=== PATIENT | male | born 1955 | race American Indian/Alaskan Native ===

== ENCOUNTER 2016-02-15 16:30 | Inpatient (IN) | payer MEDICAID ==
--- NOTE | 2016-02-15 17:32 | Emergency Department Report ---
Chief Complaint: Extremity Injury, Lower Stated Complaint: LEFT FOOT INJURY Time Seen by Provider: 02/15/16 17:29 - HPI History of Present Illness: 60 y/o male complain of stepping on toothpick x 2 weeks .pt state he was seen at urgent care center .pt was given keflex and mobic .pt current have edema noted to the left foot . - ROS Review of Systems: per HPI - Exam Vital Signs: Vital Signs 02/15/16 17:22 Temperature 98.2 F Pulse Rate 72 Respiratory 20 Rate Blood Pressure 131/84 O2 Sat by Pulse 99 Oximetry Physical Exam: GENERAL: The patient is well-developed and well-nourished. Patient is in NAD. HENT: Normocephalic. Atraumatic. Patient has moist mucous membranes. Throat: No erythema, swelling or exudates. EYES: Extraocular motions are intact, PERRL NECK: Supple. No meningitic signs are noted. There is no adenopathy noted. CHEST/LUNGS: Clear to auscultation bilaterally. No wheezing, rales or rhonchi noted. There is no respiratory distress noted. HEART/CARDIOVASCULAR: Regular rate and rhythm. Normal S1 S2. No murmurs, rubs , clicks, or gallops. ABDOMEN: Abdomen is soft, nontender.. Bowel sounds normoactive. There is no abdominal distention. Negative rebound tenderness. : Deferred. SKIN: There is no rash. There is no edema. There is no diaphoresis. NEURO: The patient is A&Ox3. The patient has no focal neurologic deficits. MUSCULOSKELETAL: There is no tenderness or deformity. There is no limitation range of motion. edema noted to left foot PSYCH: Pt has appropriate mood and affect. MSE screening note: Focused history and physical exam performed. Due to findings the following was ordered: ED Disposition for MSE Condition: Stable
[2016-02-15 17:56] LABS: Basophils % (Auto) 0.6 % (0.0-1.8); Hemoglobin 13.4 gm/dl (11.8-15.2); White Blood Count 11.4 K/mm3 (4.5-11.0)
[2016-02-15 18:01] LABS: Hematocrit 40.7 % (35.5-45.6); Mean Corpuscular HGB Conc 33 % (32-34); Mean Corpuscular Hemoglobin 31 pg (28-32); Mean Corpuscular Volume 94 fl (84-94); Platelet Count 280 K/mm3 (140-440); Red Blood Count 4.32 M/mm3 (3.65-5.03); Red Cell Distribution Width 14.6 % (13.2-15.2)
[2016-02-15 18:12] LABS: Blood Urea Nitrogen 24 mg/dL (9-20); Calcium 8.8 mg/dL (8.4-10.2); Carbon Dioxide 28 mmol/L (22-30); Chloride 104.4 mmol/L (98-107); Glucose 105 mg/dL (75-100); Potassium 4.1 mmol/L (3.6-5.0); Sodium 144 mmol/L (137-145)
[2016-02-15 18:24] LABS: Anion Gap 16 mmol/L
[2016-02-16] MEDS ORDERED: SUBLIMAZE IV ONE (03:02)
[2016-02-16] MEDS ORDERED: ZOFRAN IV ONE (03:02)
[2016-02-16] MEDS ORDERED: NACL 0.9% 1000 ML 1,000 ML IV ONE (03:02)
[2016-02-16] MEDS ORDERED: VANCOMYCIN/NS 1 GM/250 ML 250 ML IV ONE (03:03)
[2016-02-16] MEDS ORDERED: ZOSYN/NS 4.5GM/100ML 100 ML IV ONE (03:03)
--- NOTE | 2016-02-16 03:09 | Emergency Department Report ---
HPI - General Chief Complaint: Puncture Wound Time Seen by Provider: 02/16/16 02:51 - HPI HPI: Room 24 The patient is a 60-year-old male presenting with a chief complaint of left foot pain. Patient states 2 weeks ago he actually stuck a toothpick into the sole of his left foot. The patient states he removed in 5 days later he noticed swelling of the left foot so he went to the emergency department ( [facility]). There is a patient with diagnoses cellulitis and started on Keflex meloxicam. The patient states he has been taking the antibiotics as prescribed but his foot is worsened with continued swelling and subjective fever. Patient denies any discharge from the foot. Patient states the pain medication has not helped. The patient states his pain is currently a 15/10 Location: Left foot Duration: 2 weeks Quality: Pain Severity: 15/10 Modifying factors: [see above] Context: [see above] Mode of transportation: [not driving] ED Past Medical Hx - Past Medical History Previous Medical History?: Yes Hx Hypertension: Yes - Surgical History Past Surgical History?: No - Family History Family history: no significant - Social History Smoking Status: Current Every Day Smoker (1/7 pack per day) Substance Use Type: Alcohol (occasional) ED Review of Systems ROS: Stated complaint: LEFT FOOT INJURY Other details as noted in HPI Comment: All other systems reviewed and negative Constitutional: fever (subjective) Eyes: denies: eye pain, eye discharge, vision change ENT: denies: ear pain, throat pain Respiratory: denies: cough, shortness of breath, wheezing Cardiovascular: denies: chest pain, palpitations Endocrine: no symptoms reported Gastrointestinal: denies: abdominal pain, nausea, diarrhea Genitourinary: denies: urgency, dysuria Musculoskeletal: arthralgia, myalgia Skin: rash, change in color Neurological: denies: headache, weakness, paresthesias Psychiatric: denies: anxiety, depression Hematological/Lymphatic: denies: easy bleeding, easy bruising Physical Exam - Physical Exam Vital Signs: Vital Signs 02/15/16 02/16/16 17:22 01:15 Temperature 98.2 F 98.1 F Pulse Rate 72 74 Respiratory 20 16 Rate Blood Pressure 131/84 Blood Pressure 162/106 [Left] O2 Sat by Pulse 99 95 Oximetry Physical Exam: GENERAL: The patient is well-developed well-nourished male lying on stretcher not appearing to be in acute distress. [] HEENT: Normocephalic. Atraumatic. Extraocular motions are intact. Patient has moist mucous membranes. NECK: Supple. Jugular midline CHEST/LUNGS: Clear to auscultation. There is no respiratory distress noted. HEART/CARDIOVASCULAR: Regular. There is no tachycardia. There is no gallop rub or murmur. ABDOMEN: Abdomen is soft, nontender. Patient has normal bowel sounds. There is no abdominal distention. SKIN: There is moderate edema, increased warmth and erythema of the left foot. No discharge expressed from the site of the puncture wound on the left sole. There is no diaphoresis. NEURO: The patient is awake, alert, and oriented. The patient is cooperative. The patient has normal speech MUSCULOSKELETAL: There is no evidence of acute injury. ED Course Vital Signs 02/15/16 02/16/16 17:22 01:15 Temperature 98.2 F 98.1 F Pulse Rate 72 74 Respiratory 20 16 Rate Blood Pressure 131/84 Blood Pressure 162/106 [Left] O2 Sat by Pulse 99 95 Oximetry ED Medical Decision Making - Lab Data Result diagrams: 02/15/16 17:42 02/15/16 17:42 Laboratory Tests 02/15/16 02/15/16 17:42 17:42 WBC 11.4 H RBC 4.32 Hgb 13.4 Hct 40.7 MCV 94 MCH 31 MCHC 33 RDW 14.6 Plt Count 280 Lymph % (Auto) 17.7 [place] % (Auto) 10.3 H Eos % (Auto) 2.0 Baso % (Auto) 0.6 Lymph # 2.0 [place] # 1.2 H Eos # 0.2 Baso # 0.1 Seg Neutrophils % 69.4 Seg Neutrophils # 7.9 H Sodium 144 Potassium 4.1 Chloride 104.4 Carbon Dioxide 28 Anion Gap 16 BUN 24 H Creatinine 1.2 Estimated GFR > 60 BUN/Creatinine Ratio 20.00 Glucose 105 H Calcium 8.8 - Radiology Data Radiology results: image reviewed (left foot x-ray) interpreted by me: Left foot x-ray-no foreign body seen. No fractures - Differential Diagnosis cellulitis failure of outpatient treatment, foot abscess. Osteomyelitis Critical care attestation.: If time is entered above; I have spent that time in minutes in the direct care of this critically ill patient, excluding procedure time. ED Disposition Clinical Impression: Infection of left foot, Cellulitis of left foot, Left foot pain, Failure of outpatient treatment Disposition: OP ADMITTED IP TO THIS HOSP Is pt being admited?: Yes Does the pt Need Aspirin: Yes Condition: Fair Time of Disposition: 03:15 (hospitalist paged)
[2016-02-16] MEDS ORDERED: MORPHINE IV PRN (04:38)
--- NOTE | 2016-02-16 04:47 | History and Physical Report ---
[id number] problems comes emergency room for evaluation of worsening swelling and tenderness of his left foot. Patient stated that 2 weeks ago he stepped on a toothpick, he noticed swelling and redness of the foot. He went to urgent care who gave him antibiotic, probably Keflex which has not helped his symptoms, patient has worsening swelling, redness and pain Patient denies chest pain, palpitation, shortness of breath, cough, abdominal pain, hematochezia, dysuria, frequency, focal weakness, dysarthria, fever chills , polydipsia polyuria, hot or cold intolerance, easy bruisability, or rash or bleeding from mucosal membrane, rhinorrhea, epistaxis, earache, tinnitus, blurry vision, eye discharge, anxiety, depression. Other review of systems negative PAST SURGICAL HISTORY: None SOCIAL HISTORY: Smoke 1 pack a week, no alcohol or drugs FAMILY HISTORY: Hypertension Medications and Allergies Allergies Allergy/AdvReac Type Severity Reaction Status Date / Time bee venom (honey bee) Allergy Anaphylaxis Verified 02/16/16 00:45 Home Medications Medication Instructions Recorded Confirmed Last Taken Type Naproxen [Naproxen TAB] 250 mg PO Q8H 02/16/16 02/16/16 Unknown History Active Meds: Active Medications Sodium Chloride (Nacl 0.9% 1000 Ml) 1,000 mls @ 125 mls/hr IV ONCE ONE Stop: 02/16/16 11:01 Last Admin: 02/16/16 04:09 Dose: 125 mls/hr Morphine Sulfate (Morphine) 2 mg IV Q4H PRN PRN Reason: Pain, Moderate (4-6) Exam - Physical Exam Narrative exam: Gen. appearance: Patient lying in bed, no apparent distress HEENT: Normocephalic, atraumatic, pupils equally round and reactive to light, extraocular movement intact, and no sclericterus,. No JVD or thyromegaly or nodule,neck supple, no carotid bruit ,mucous membranes moist, no exudate or erythema Heart: S1, S2, regular rate and rhythm Lungs: Clear to auscultation bilaterally, breathing comfortable Abdomen: Positive bowel sounds, nontender, nondistended, no organomegaly Extremity: No edema, cyanosis, clubbing Skin: Left foot swelling, tender to touch, erythema, pus pocket on the dorsum of the foot, No rash, nodules, warm, dry Neuro: Oriented 3, cranial nerves II-12 intact, speech is fluent, motor and sensory intact - Constitutional Vitals: Temp Pulse Resp BP Pulse Ox 98.1 F 74 20 162/106 95 02/16/16 01:15 02/16/16 01:15 02/16/16 04:10 02/16/16 01:15 02/16/16 01:15 Results - Labs CBC & Chem 7: 02/17/16 06:26 02/17/16 06:26 Labs: Abnormal lab results 02/15/16 02/15/16 02/16/16 Range/Units 17:42 17:42 03:13 WBC 11.4 H (4.5-11.0) K/mm3 [place] % (Auto) 10.3 H (0.0-7.3) % [place] # 1.2 H (0.0-0.8) K/mm3 Seg Neutrophils # 7.9 H (1.8-7.7) K/mm3 BUN 24 H (9-20) mg/dL Glucose 105 H (75-100) mg/dL C-Reactive Protein 5.90 H (0.00-1.30) mg/dL Assessment and Plan X-ray of the foot Cellulitis and abscess of the left foot Elevated blood pressure Admits medicine Start IV vancomycin, morphine, obtain wound culture Monitor blood pressure, start DVT prophylaxis
[2016-02-16] MEDS ORDERED: MILK OF MAGNESIA PO PRN (08:33)
[2016-02-16] MEDS ORDERED: ZOFRAN IV PRN (08:33)
--- NOTE | 2016-02-16 09:26 | XRay Report ---
LEFT FOOT 2 VIEWS: 02/15/16 17:49:00 CLINICAL: Swelling. FINDINGS: No fracture or dislocation. Moderate soft tissue swelling of the forefoot and midfoot which is greater on the medial aspect of the foot. No soft tissue air or foreign body. Joint spaces are normal. No erosive changes in the bones. IMPRESSION: Nonspecific soft tissue edema and no bony abnormality.
[2016-02-16] MEDS ORDERED: LOVENOX SUB-Q SCH (10:00)
[2016-02-16] MEDS ORDERED: DULCOLAX PR PRN (10:00)
--- NOTE | 2016-02-16 10:07 | Event Note ---
Date: 02/16/16 Patient seen and examined. This is a follow-up from an admission earlier this morning. Plain films revealed no foreign body or air. Patient with some soft tissue swelling on radiograph films. Continue IV antibiotics and follow cultures and lactic acid levels. Continue the plan as outlined in H&P.
[2016-02-16] MEDS: MORPHINE IV PRN ×2 (10:52→20:32)
[2016-02-16] MEDS: LOVENOX SUB-Q SCH (10:53)
[2016-02-16] MEDS: TYLENOL PO PRN (11:07)
[2016-02-16] MEDS: VANCOMYCIN/NS 1 GM/250 ML 250 ML IV SCH (18:33)
--- NOTE | 2016-02-16 22:36 | Admit Criteria Form ---
Admission Criteria Documentation: CELLULITIS Clinical Indications for Admission to Inpatient Care (Place 'X' for any and all applicable criteria): Admission is indicated for ANY ONE of the following(1)(2)(3)(4)(5): [ ]I. Limb-threatening infection [ X]II. High-risk comorbid condition as indicated by ANY ONE of the following: [ X]a) Uncontrolled diabetes (eg, HbA1c greater than 10% (0.1)) [ ]b) Cirrhosis [ ]c) Neutropenia [ ]d) Asplenia [ ]e) Immunosuppression [ ]f) Symptomatic heart failure [ ]III. Failure of outpatient therapy as indicated by ALL of the following: [ ]a) Progression or no improvement after adequate trial (minimum of 48 hours, with longer period for stable lower extremity infection) [ ]b) Adequate antibiotic regimen as indicated by use of ANY ONE of the following: [ ]i) First-generation cephalosporin (e.g., cephalexin) [ ]ii) Antistaphylococcal penicillin (e.g., dicloxacillin) [ ]iii) Penicillin-allergic patient regimen (clindamycin, extended-spectrum fluoroquinolone, or doxycycline) [ ]iv) Resistant organism (eg, methicillin-resistant Staphylococcus aureus) regimen (6) [ ]c) Outpatient intravenous therapy regimen is not appropriate due to ANY ONE of the following. (7)(8)(9)(10): [ ]i) It was tried and was not successful (eg, progression of infection). [ ]ii) It is not available or cannot be arranged in a clinically appropriate time frame (e.g., the next day). [ ]iii) Clinical presentation (eg, acuity of infection, rapidity of progression, confirmed or suspected bacteremia) is judged to require ALL of the following: [ ]1) Immediate initiation of intravenous therapy ( eg, cannot wait for next day) [ ]2) Intensity of patient monitoring and observation (eg, vital sign measurement, checks for infection progression) that cannot be provided at other than inpatient level of care [ ]IV. Mental status changes [ ]V. Bacteremia [ ]. Hemodynamic instability [ ]VII. Suspected necrotizing soft tissue infection (e.g., gas in tissue)(11)( 12) [ ]VIII. Orbital infection (13)(14) [ ]IX. Associated surgical procedure (e.g., abscess drainage, debridement) not amenable to outpatient, emergency department, or observation care [ ]X. Cutaneous gangrene [ ]XI. High fever (temperature greater than 39.5 degrees C (103.1 degrees F) (oral)) not responsive to outpatient, emergency department, or observation care therapy [ ]XIII. Inpatient admission required rather than observation care (Also use Cellulitis: Observation Care as appropriate) because of ANY ONE of the following : [ ]a) Periorbital or perineal infection that is severe or worsening [ ]b) Severe pain requiring acute inpatient management [ ]c) IV fluid to replace significant ongoing (e.g., for over 24 hours) losses (greater than 3L/m2 per day) [ ]d) Compartment syndrome monitoring (17) [ ]e) Strict or protective (eg, laminar flow) isolation [ ]f) Urgent debridement or skin grafting [ ]g) Bone or joint debridement [ ]h) Immediate inpatient surgery [ ]i) Other condition, treatment or monitoring requiring inpatient admission Extended stay beyond goal length of stay may be needed for (1)(18): [ ]a) Necrotizing soft tissue infection or fasciitis [ ]b) Gram-negative infection [ ]c) Methicillin-resistant Staphylococcal aureus (MRSA) infection [ ]d) Peripheral venous insufficiency with cellulitis [ ]e) Extensive edema [ ]f) Sepsis or continued Hemodynamic instability [ ]g) Continued high fever or mental status change [ ]h) Bacteremia [ ]i) Active serious comorbid conditions ( eg, heart failure, renal insufficiency) The original [facility] content created by [email or web address] has been revised. The portions of the content which have been revised are identified through the use of italic text or in bold, and [facility] has neither reviewed nor approved the modified material. All other unmodified content is copyright [facility] Please see references footnoted in the original [facility] [employer] edition 2016 Admission Criteria Met: Yes
[2016-02-17] MEDS: VANCOMYCIN/NS 1 GM/250 ML 250 ML IV SCH ×2 (04:14→18:45)
[2016-02-17 06:34] LABS: Basophils % (Auto) 0.8 % (0.0-1.8); Eosinophils % (Auto) 2.1 % (0.0-4.3); Hematocrit 40.6 % (35.5-45.6); Hemoglobin 13.3 gm/dl (11.8-15.2); Mean Corpuscular HGB Conc 33 % (32-34); Mean Corpuscular Hemoglobin 31 pg (28-32); Mean Corpuscular Volume 95 fl (84-94); Platelet Count 302 K/mm3 (140-440); Red Blood Count 4.27 M/mm3 (3.65-5.03); Red Cell Distribution Width 14.5 % (13.2-15.2); White Blood Count 10.2 K/mm3 (4.5-11.0)
[2016-02-17 06:47] LABS: Anion Gap 14 mmol/L; BUN/Creatinine Ratio 7.27; Blood Urea Nitrogen 8 mg/dL (9-20); Calcium 7.9 mg/dL (8.4-10.2); Carbon Dioxide 28 mmol/L (22-30); Chloride 106.4 mmol/L (98-107); Glucose 93 mg/dL (75-100); Potassium 4.7 mmol/L (3.6-5.0); Sodium 144 mmol/L (137-145)
[2016-02-17] MEDS: LOVENOX SUB-Q SCH (11:51)
[2016-02-17] MEDS: MORPHINE IV PRN ×3 (11:55→23:16)
--- NOTE | 2016-02-17 12:13 | Progress Note ---
Assessment and Plan Assessment and plan: 1. Left lower extremity cellulitis. Improving. X-ray negative for foreign body or gas. Continue IV antibiotics. 2. Hypertension. Continue antihypertensives medications. 3. Disposition. Patient will likely discharge in the next 1-2 days. History Interval history: No new issues overnight. Hospitalist Physical - Constitutional Vitals: Temp Pulse Resp BP Pulse Ox 98.5 F 67 20 159/99 96 02/17/16 07:05 02/17/16 07:05 02/17/16 07:05 02/17/16 07:05 02/17/16 09:43 General appearance: Present: no acute distress, well-nourished - EENT Eyes: Present: PERRL, EOM intact ENT: hearing intact, clear oral mucosa, dentition normal - Neck Neck: Present: supple, normal ROM - Respiratory Respiratory effort: normal Respiratory: bilateral: CTA - Cardiovascular Rhythm: regular Heart Sounds: Present: S1 & S2. Absent: gallop, rub - Extremities Extremities: no ischemia, No edema, Full ROM Extremity abnormal: edema, erythema, other (left foot sweling, warmth and erythema) - Abdominal General gastrointestinal: soft, non-tender, non-distended, normal bowel sounds - Integumentary Integumentary: Present: clear, warm, dry - Neurologic Neurologic: CNII-XII intact, moves all extremities Results - Labs CBC & Chem 7: 02/17/16 06:26 02/17/16 06:26 Labs: Laboratory Last Values WBC 10.2 K/mm3 (4.5-11.0) 02/17/16 06:26 RBC 4.27 M/mm3 (3.65-5.03) 02/17/16 06:26 Hgb 13.3 gm/dl (11.8-15.2) 02/17/16 06:26 Hct 40.6 % (35.5-45.6) 02/17/16 06:26 MCV 95 fl (84-94) H 02/17/16 06:26 MCH 31 pg (28-32) 02/17/16 06:26 MCHC 33 % (32-34) 02/17/16 06:26 RDW 14.5 % (13.2-15.2) 02/17/16 06:26 Plt Count 302 K/mm3 (140-440) 02/17/16 06:26 Lymph % (Auto) 22.0 % (13.4-35.0) 02/17/16 06:26 [place] % (Auto) 7.0 % (0.0-7.3) 02/17/16 06:26 Eos % (Auto) 2.1 % (0.0-4.3) 02/17/16 06:26 Baso % (Auto) 0.8 % (0.0-1.8) 02/17/16 06:26 Lymph # 2.2 K/mm3 (1.2-5.4) 02/17/16 06:26 [place] # 0.7 K/mm3 (0.0-0.8) 02/17/16 06:26 Eos # 0.2 K/mm3 (0.0-0.4) 02/17/16 06:26 Baso # 0.1 K/mm3 (0.0-0.1) 02/17/16 06:26 Seg Neutrophils % 68.1 % (40.0-70.0) 02/17/16 06:26 Seg Neutrophils # 6.9 K/mm3 (1.8-7.7) 02/17/16 06:26 ESR 28 mm/Hr (0-20) 02/16/16 03:13 Sodium 144 mmol/L (137-145) 02/17/16 06:26 Potassium 4.7 mmol/L (3.6-5.0) 02/17/16 06:26 Chloride 106.4 mmol/L (98-107) 02/17/16 06:26 Carbon Dioxide 28 mmol/L (22-30) 02/17/16 06:26 Anion Gap 14 mmol/L 02/17/16 06:26 BUN 8 mg/dL (9-20) L 02/17/16 06:26 Creatinine 1.1 mg/dL (0.8-1.5) 02/17/16 06:26 Estimated GFR > 60 ml/min 02/17/16 06:26 BUN/Creatinine Ratio 7.27 % 02/17/16 06:26 Glucose 93 mg/dL (75-100) 02/17/16 06:26 Calcium 7.9 mg/dL (8.4-10.2) L 02/17/16 06:26 C-Reactive Protein 5.90 mg/dL (0.00-1.30) H 02/16/16 03:13
[2016-02-17] MEDS: NORVASC PO SCH (23:16)
[2016-02-18] MEDS: MORPHINE IV PRN ×4 (04:03→19:59)
[2016-02-18] MEDS: VANCOMYCIN/NS 1 GM/250 ML 250 ML IV SCH ×2 (04:12→15:38)
[2016-02-18] MEDS: NORVASC PO SCH (10:40)
[2016-02-18] MEDS: LOVENOX SUB-Q SCH (10:42)
--- NOTE | 2016-02-18 14:31 | Progress Note ---
Assessment and Plan Assessment and plan: 1. Left lower extremity cellulitis-with possible abscess formation-we'll get CT scan of the left foot, will consult orthopedics, continue IV vancomycin for now and monitor vancomycin levels. White count is now normal and IV morphine as needed for pain, monitor for respiratory depression while on IV morphine 2. Hypertension. Continue antihypertensives medications. 3. DVT prophylaxis-lovenox History Interval history: Follow-up for left foot cellulitis/abscess Patient seen at the bedside, pain and swelling is improving however still has pain around the left great toe with some areas that are fluctuant Hospitalist Physical - Constitutional Vitals: Temp Pulse Resp BP Pulse Ox 98.8 F 63 18 121/81 96 02/18/16 07:55 02/18/16 07:55 02/18/16 07:55 02/18/16 07:55 02/18/16 08:41 General appearance: Present: no acute distress, well-nourished - EENT Eyes: Present: PERRL, EOM intact. Absent: scleral icterus, conjunctival injection ENT: hearing intact, clear oral mucosa, no oropharyngeal erythema, no poor dentition - Neck Neck: Present: supple, normal ROM. Absent: enlarged thyroid, masses or JVD - Respiratory Respiratory effort: normal Respiratory: negative: diminished, rales, rhonchi, wheezing - Cardiovascular Rhythm: regular Heart Sounds: Present: S1 & S2. Absent: gallop - Extremities Extremities: no ischemia, pulses intact, pulses symmetrical, abnormal (swelling around the left great toe with fluctuance on the ventral aspect, tenderness) Peripheral Pulses: within normal limits - Abdominal General gastrointestinal: soft, non-tender, non-distended - Integumentary Integumentary: Present: clear - Psychiatric Psychiatric: appropriate mood/affect, intact judgment & insight, memory intact - Neurologic Neurologic: CNII-XII intact, moves all extremities Results - Labs CBC & Chem 7: 02/17/16 06:26 02/17/16 06:26 Labs: Laboratory Last Values WBC 10.2 K/mm3 (4.5-11.0) 02/17/16 06:26 RBC 4.27 M/mm3 (3.65-5.03) 02/17/16 06:26 Hgb 13.3 gm/dl (11.8-15.2) 02/17/16 06:26 Hct 40.6 % (35.5-45.6) 02/17/16 06:26 MCV 95 fl (84-94) H 02/17/16 06:26 MCH 31 pg (28-32) 02/17/16 06:26 MCHC 33 % (32-34) 02/17/16 06:26 RDW 14.5 % (13.2-15.2) 02/17/16 06:26 Plt Count 302 K/mm3 (140-440) 02/17/16 06:26 Lymph % (Auto) 22.0 % (13.4-35.0) 02/17/16 06:26 [place] % (Auto) 7.0 % (0.0-7.3) 02/17/16 06:26 Eos % (Auto) 2.1 % (0.0-4.3) 02/17/16 06:26 Baso % (Auto) 0.8 % (0.0-1.8) 02/17/16 06:26 Lymph # 2.2 K/mm3 (1.2-5.4) 02/17/16 06:26 [place] # 0.7 K/mm3 (0.0-0.8) 02/17/16 06:26 Eos # 0.2 K/mm3 (0.0-0.4) 02/17/16 06:26 Baso # 0.1 K/mm3 (0.0-0.1) 02/17/16 06:26 Seg Neutrophils % 68.1 % (40.0-70.0) 02/17/16 06:26 Seg Neutrophils # 6.9 K/mm3 (1.8-7.7) 02/17/16 06:26 ESR 28 mm/Hr (0-20) 02/16/16 03:13 Sodium 144 mmol/L (137-145) 02/17/16 06:26 Potassium 4.7 mmol/L (3.6-5.0) 02/17/16 06:26 Chloride 106.4 mmol/L (98-107) 02/17/16 06:26 Carbon Dioxide 28 mmol/L (22-30) 02/17/16 06:26 Anion Gap 14 mmol/L 02/17/16 06:26 BUN 8 mg/dL (9-20) L 02/17/16 06:26 Creatinine 1.1 mg/dL (0.8-1.5) 02/17/16 06:26 Estimated GFR > 60 ml/min 02/17/16 06:26 BUN/Creatinine Ratio 7.27 % 02/17/16 06:26 Glucose 93 mg/dL (75-100) 02/17/16 06:26 Calcium 7.9 mg/dL (8.4-10.2) L 02/17/16 06:26 C-Reactive Protein 5.90 mg/dL (0.00-1.30) H 02/16/16 03:13 Microbiology 02/16/16 04:49 Foot - Left Wound Culture - Preliminary 02/16/16 03:13 Peripheral/Venous Blood Culture - Preliminary NO GROWTH AFTER 48 HOURS 02/16/16 03:13 Peripheral/Venous Blood Culture - Preliminary NO GROWTH AFTER 48 HOURS X-ray of the left foot-nonspecific soft tissue edema and no bony abnormality
--- NOTE | 2016-02-18 17:28 | Consultation ---
History of Present Illness - HPI Consult date: 02/18/16 History of present illness: 60-year-old man stepped on a toothpick 2 weeks ago, sustained injury to the left foot. He believe that he extracted the entire to pick, however following this he developed pain and swelling and redness and is admitted because of this. During this time he was aspirated over the medial aspect the big toe, he developed a blister, fluctuating swelling. Orthopedic consultation was requested for evaluation and management of the same. Past History Past Medical History: No medical history Medications and Allergies Allergies Allergy/AdvReac Type Severity Reaction Status Date / Time bee venom (honey bee) Allergy Anaphylaxis Verified 02/16/16 00:45 Home Medications Medication Instructions Recorded Confirmed Last Taken Type Naproxen [Naproxen TAB] 250 mg PO Q8H 02/16/16 02/16/16 Unknown History Active Meds: Active Medications Acetaminophen (Tylenol) 650 mg PO Q4H PRN PRN Reason: Pain MILD(1-3)/Fever >100.5/DHILLON Last Admin: 02/16/16 11:07 Dose: 650 mg Amlodipine Besylate (Norvasc) 10 mg PO QDAY [facility] Last Admin: 02/18/16 10:40 Dose: 10 mg Bisacodyl (Dulcolax) 10 mg HI QDAY PRN PRN Reason: Constipation unrelieved by MOM Enoxaparin Sodium (Lovenox) 40 mg SUB-Q QDAY@1000 RAO Last Admin: 02/18/16 10:42 Dose: 40 mg Vancomycin HCl (Vancomycin/Ns 1 Gm/250 Ml) 250 mls @ 167 mls/hr IV Q12H RAO PRN Reason: Protocol Last Admin: 02/18/16 15:38 Dose: 167 mls/hr Magnesium Hydroxide (Milk Of Magnesia) 30 ml PO Q4H PRN PRN Reason: Constipation Morphine Sulfate (Morphine) 2 mg IV Q4H PRN PRN Reason: Pain, Moderate (4-6) Last Admin: 02/18/16 14:41 Dose: 2 mg Ondansetron HCl (Zofran) 4 mg IV Q8H PRN PRN Reason: N/V unrelieved by Reglan Review of Systems All systems: negative Physical Examination - Physical exam Eyes: PERRL ENT: Positive: clear oral mucosa Respiratory effort: normal Respiratory: bilateral: CTA Rhythm: regular Heart Sounds: Positive: S1 & S2 General gastrointestinal: Positive: soft, non-tender, non-distended, normal bowel sounds Integumentary: clear, warm, dry Neurologic: Positive: CNII-XII intact, moves all extremities, gait normal. Negative: focal deficits - Ankle & Foot left Foot appearance: other (Left foot with diffuse swelling over the medial side, over the plantar aspect of the big toe there is a puncture wound with surrounding redness, induration. A possibly 1 cm proximal to this area and over the medial side of the foot has an area of blister formation and deep fluctuation. Moderate pain with tenderness, a neuro was in deficit.) - Cervical Spine Neck pain: none Tenderness with palpation: none Full ROM: yes ROM: flexion: normal ROM: extension: normal ROM: rotation right: normal ROM: rotation left: normal ROM: lateral flexion right: normal ROM: lateral flexion left: normal - Lumbar Spine Back pain: none Tenderness with palpation: none Appearance: normal Full ROM: yes ROM: flexion: normal ROM: extension: normal ROM: rotation right: normal ROM: rotation left: normal ROM: lateral flexion right: normal ROM: lateral flexion left: normal Assessment and Plan - Patient Problems (1) Infection of left foot Current Visit: Yes Status: Chronic Plan to address problem: Need i&D/debridment, will schedule With the penetrating injury with toothpick and subsequent swelling, redness to believe that he may have retained part of the toothpick, developed subsequent infection. Recommend elevation, antibiotics, open debridement with deep cultures. May need open wound management. Procedure, competitions and outcome discussed with and all questions are answered. I will tentatively scheduled this for tomorrow.
[2016-02-19] MEDS: MORPHINE IV PRN ×5 (00:19→20:47)
[2016-02-19] MEDS: VANCOMYCIN/NS 1 GM/250 ML 250 ML IV SCH ×2 (04:00→18:19)
--- NOTE | 2016-02-19 09:54 | Anesthesia Consultation ---
Anesthesia Consult and Med Hx Date of service: 02/19/16 - Airway Anesthetic Teeth Evaluation: Poor ROM Head & Neck: Adequate Mental/Hyoid Distance: Adequate Mallampati Class: Class II Intubation Access Assessment: Probably Good - Pulmonary Exam CTA: Yes - Cardiac Exam Cardiac Exam: RRR - Pre-Operative Health Status ASA Pre-Surgery Classification: ASA2 Proposed Anesthetic Plan: General - Pre-Anesthesia Comment Pre-Anesthesia Comments: Lovenox subQ yesterday PM for DVT - Pulmonary Hx Smoking: Yes (1pack for 2 weeks x 30years) Hx Asthma: No Hx Sleep Apnea: No - Cardiovascular System Hx Hypertension: Yes (non compliance with meds) Hx Heart Attack/AMI: No Hx Pacemaker: No Hx Internal Defibrillator: No - Central Nervous System Hx Neuromuscular Disorder: Yes (Left knee swelling on naproxen) Hx Seizures: No CVA: No Hx Back Pain: Yes (lower back L1 pain) - Gastrointestinal Hx Gastroesophageal Reflux Disease: No - Endocrine Hx Renal Disease: No Hx Liver Disease: Yes (hep C, resolved after meds treatment) Hx Non-Insulin Dependent Diabetes: No - Hematic Hx Anemia: No Hx Sickle Cell Disease: No - Other Systems Hx Alcohol Use: No Hx Cancer: No - Additional Comments Anesthesia Medical History Comments: NAC
--- NOTE | 2016-02-19 09:55 | Anesthesia Day of Surgery ---
Anesthesia Day of Surgery - Day of Surgery Patient Examined: Yes Patient H&P Reviewed: Yes Patient is NPO: Yes
[2016-02-19] MEDS ORDERED: PEPCID PO NR (10:00)
[2016-02-19] MEDS ORDERED: VERSED IV NR (10:00)
--- NOTE | 2016-02-19 10:25 | Progress Note ---
Assessment and Plan Assessment and plan: 1. Left lower extremity cellulitis-with possible abscess formation-for I&D today; continue IV vancomycin for now and monitor vancomycin levels. White count is now normal and IV morphine as needed for pain, monitor for respiratory depression while on IV morphine 2. Hypertension. Continue antihypertensives medications. 3. DVT prophylaxis-lovenox History Interval history: Follow-up for left foot cellulitis/abscess Patient seen at the bedside, for I&D today Hospitalist Physical - Constitutional Vitals: Temp Pulse Resp BP Pulse Ox 98.2 F 63 20 134/93 98 02/19/16 08:41 02/19/16 08:41 02/19/16 08:41 02/19/16 08:41 02/19/16 08:41 General appearance: Present: no acute distress, well-nourished - EENT Eyes: Present: PERRL, EOM intact. Absent: scleral icterus, conjunctival injection ENT: hearing intact, clear oral mucosa, no oropharyngeal erythema, no poor dentition - Neck Neck: Present: supple, normal ROM. Absent: enlarged thyroid, masses or JVD - Respiratory Respiratory effort: normal Respiratory: negative: diminished, rales, rhonchi, wheezing - Cardiovascular Rhythm: regular Heart Sounds: Present: S1 & S2. Absent: gallop - Extremities Extremities: no ischemia, pulses intact, pulses symmetrical, No edema Peripheral Pulses: within normal limits - Abdominal General gastrointestinal: soft, non-tender, non-distended, normal bowel sounds - Integumentary Integumentary: Present: clear - Psychiatric Psychiatric: appropriate mood/affect, intact judgment & insight, cooperative - Neurologic Neurologic: CNII-XII intact, moves all extremities Results - Labs CBC & Chem 7: 02/17/16 06:26 02/17/16 06:26 Labs: Laboratory Last Values WBC 10.2 K/mm3 (4.5-11.0) 02/17/16 06:26 RBC 4.27 M/mm3 (3.65-5.03) 02/17/16 06:26 Hgb 13.3 gm/dl (11.8-15.2) 02/17/16 06:26 Hct 40.6 % (35.5-45.6) 02/17/16 06:26 MCV 95 fl (84-94) H 02/17/16 06:26 MCH 31 pg (28-32) 02/17/16 06:26 MCHC 33 % (32-34) 02/17/16 06:26 RDW 14.5 % (13.2-15.2) 02/17/16 06:26 Plt Count 302 K/mm3 (140-440) 02/17/16 06:26 Lymph % (Auto) 22.0 % (13.4-35.0) 02/17/16 06:26 [place] % (Auto) 7.0 % (0.0-7.3) 02/17/16 06:26 Eos % (Auto) 2.1 % (0.0-4.3) 02/17/16 06:26 Baso % (Auto) 0.8 % (0.0-1.8) 02/17/16 06:26 Lymph # 2.2 K/mm3 (1.2-5.4) 02/17/16 06:26 [place] # 0.7 K/mm3 (0.0-0.8) 02/17/16 06:26 Eos # 0.2 K/mm3 (0.0-0.4) 02/17/16 06:26 Baso # 0.1 K/mm3 (0.0-0.1) 02/17/16 06:26 Seg Neutrophils % 68.1 % (40.0-70.0) 02/17/16 06:26 Seg Neutrophils # 6.9 K/mm3 (1.8-7.7) 02/17/16 06:26 ESR 28 mm/Hr (0-20) 02/16/16 03:13 Sodium 144 mmol/L (137-145) 02/17/16 06:26 Potassium 4.7 mmol/L (3.6-5.0) 02/17/16 06:26 Chloride 106.4 mmol/L (98-107) 02/17/16 06:26 Carbon Dioxide 28 mmol/L (22-30) 02/17/16 06:26 Anion Gap 14 mmol/L 02/17/16 06:26 BUN 8 mg/dL (9-20) L 02/17/16 06:26 Creatinine 1.1 mg/dL (0.8-1.5) 02/17/16 06:26 Estimated GFR > 60 ml/min 02/17/16 06:26 BUN/Creatinine Ratio 7.27 % 02/17/16 06:26 Glucose 93 mg/dL (75-100) 02/17/16 06:26 Calcium 7.9 mg/dL (8.4-10.2) L 02/17/16 06:26 C-Reactive Protein 5.90 mg/dL (0.00-1.30) H 02/16/16 03:13 Microbiology 02/16/16 03:13 Peripheral/Venous Blood Culture - Preliminary NO GROWTH AFTER 72 HOURS 02/16/16 03:13 Peripheral/Venous Blood Culture - Preliminary NO GROWTH AFTER 72 HOURS 02/16/16 04:49 Foot - Left Wound Culture - Preliminary
[2016-02-19] MEDS: NORVASC PO SCH (10:44)
[2016-02-19] MEDS: LOVENOX SUB-Q SCH (13:32)
[2016-02-19] MEDS ORDERED: SUBLIMAZE ONE (14:07)
[2016-02-19] MEDS ORDERED: XYLOCAINE MPF 2% ONE (14:07)
[2016-02-19] MEDS ORDERED: DIPRIVAN 10 MG/ML IV ONE (14:07)
[2016-02-19] MEDS ORDERED: ZOFRAN ONE (14:07)
[2016-02-19] MEDS: LACTATED RINGERS 1,000 ML IV SCH (15:00)
[2016-02-19] MEDS ORDERED: ePHEDrine SULFATE ONE (15:11)
[2016-02-19] MEDS ORDERED: NACL 0.9% IR ONE ×2 (15:12)
[2016-02-19] MEDS ORDERED: NEOSPORIN GU IR ONE ×2 (15:12)
--- NOTE | 2016-02-19 15:27 | Procedure Note ---
Date of procedure: 02/19/16 Pre-op diagnosis: Abscess left foot Post-op diagnosis: same Procedure: Debridment Excisional, left foot abscess Anesthesia: GETA Surgeon: CRAIG VOGEL Estimated blood loss: none Pathology: list (tissue/ cultures) Specimen disposition: to lab Condition: stable Disposition: PACU
[2016-02-19] MEDS ORDERED: DILAUDID ONE ×2 (15:48→15:57)
[2016-02-19] MEDS ORDERED: TORADOL ONE (15:52)
[2016-02-19] MEDS ORDERED: [UNRECOGNIZED DRUG - OTHER] IV SCH (17:15)
--- NOTE | 2016-02-19 17:26 | Post Anesthesia Evaluation ---
- Post Anesthesia Evaluation Patient Participated: Yes Airway Patent: Yes Stable Respiratory Function: Yes Nausea/Vomiting: No Temp > 96.8F: Yes Pain Manageable: Yes Adequeate Hydration: Yes Anesthesia Complications: No Block Receding Appropriately: Not Applicable Patient on Ventilator: No
--- NOTE | 2016-02-19 17:38 | Operative Report ---
PREOPERATIVE DIAGNOSIS: Abscess, left foot, penetrating injury resulting from a toothpick. POSTOPERATIVE DIAGNOSIS: Abscess, left foot, penetrating injury resulting from a toothpick. OPERATIVE PROCEDURE: Debridement left foot abscess, open wound management, and deep cultures. SURGEON: Saumya Suggs MD CHILDREN'S ATTENDANT: Lizy Castillo CSA. ANESTHESIA: General. BLOOD LOSS: Minimal. DESCRIPTION OF PROCEDURE: The patient was taken to surgery suite, satisfactory analgesia obtained with general anesthetics. The left foot prepped with ChloraPrep, satisfactorily draped. No tourniquet was used. Incision was made over the medial aspect of the left foot at the first MTP region over the maximally fluctuant area. The abscess cavity was approximately 1-inch in size with purulent material and this evacuated. The abscess cavity was explored, found extending into the base of the first metatarsal head at the site of the puncture wound resulting from the toothpick. The necrotic tissue was excised by sharp and blunt dissection. Wound was irrigated with pulse irrigation system. Cultures were made prior to this for aerobic and anaerobic cultures, debrided tissue submitted for biopsy. No retained foreign bodies were identified. A small incision was made over the puncture wound site and the wound was again explored, did not find any retained foreign bodies. Therefore, after irrigation, wound was open packed. Sterile dressings were applied. The patient was transferred to recovery room in satisfactory condition and he tolerated the procedure well. JOB# [id number] JAGUAR/PASCUAL NGUYEN
[2016-02-19] MEDS ORDERED: OFIRMEV 1000 MG/100 ML IV SCH (18:00)
[2016-02-19] MEDS: TYLENOL PO PRN (18:54)
--- NOTE | 2016-02-20 03:24 | Cat Scan Report ---
FINAL REPORT PROCEDURE: CT LOWER EXTREMITY LT WO CON TECHNIQUE: Computerized axial tomography of the LEFT foot and ankle was performed without contrast. HISTORY: lt foot cellulitis' r/o abscess COMPARISON: No prior studies are available for comparison. FINDINGS: The tibia and fibula are intact. The talus and calcaneus are intact. The tarsal bones, metatarsal bones and phalanges are intact. There are destructive changes of the tibial sesamoid bone of the 1st digit indicating possible osteomyelitis. The fibular sesamoid bone is intact. There is diffuse subcutaneous edema and soft tissue swelling. There is a defect in the soft tissues of the foot along the 1st metatarsal bone. There appears to be gauze or other type of packing within the defect which extends 2.5 centimeters deep to the surface. No loculated fluid collection is identified. There is no mass. There is subcutaneous emphysema in the surrounding soft tissues. This could be due to surgical intervention or infection with gas-forming organism. IMPRESSION: Soft tissue infection of the forefoot with subcutaneous defect as described suggesting recently drained abscess adjacent to the 1st metatarsal bone. No residual abscess is seen. There are destructive changes of the tibial sesamoid bone which could be due to trauma or possibly osteomyelitis.
[2016-02-20] MEDS ORDERED: MILK OF MAGNESIA PO PRN (03:47)
[2016-02-20] MEDS ORDERED: SODIUM CHLORIDE FLUSH SYRINGE 10 ML IV NR (03:47)
[2016-02-20] MEDS ORDERED: TYLENOL PO PRN (03:47)
[2016-02-20] MEDS ORDERED: AMBIEN PO PRN (03:47)
[2016-02-20] MEDS: VANCOMYCIN/NS 1 GM/250 ML 250 ML IV SCH (05:54)
[2016-02-20 06:55] LABS: Basophils % (Auto) 0.8 % (0.0-1.8); Eosinophils % (Auto) 2.7 % (0.0-4.3); Hematocrit 43.5 % (35.5-45.6); Hemoglobin 14.3 gm/dl (11.8-15.2); Mean Corpuscular HGB Conc 33 % (32-34); Mean Corpuscular Hemoglobin 31 pg (28-32); Mean Corpuscular Volume 94 fl (84-94); Platelet Count 362 K/mm3 (140-440); Red Blood Count 4.62 M/mm3 (3.65-5.03); Red Cell Distribution Width 14.6 % (13.2-15.2); White Blood Count 10.1 K/mm3 (4.5-11.0)
[2016-02-20 06:59] LABS: BUN/Creatinine Ratio 18.33; Blood Urea Nitrogen 22 mg/dL (9-20); Calcium 8.7 mg/dL (8.4-10.2); Carbon Dioxide 28 mmol/L (22-30); Glucose 99 mg/dL (75-100); Potassium 4.3 mmol/L (3.6-5.0); Sodium 141 mmol/L (137-145)
[2016-02-20 07:00] LABS: Anion Gap 15 mmol/L
[2016-02-20] MEDS: MORPHINE IV PRN ×3 (08:43→20:40)
[2016-02-20] MEDS: LACTATED RINGERS 1,000 ML IV SCH ×2 (08:47→22:12)
[2016-02-20] MEDS: LOVENOX SUB-Q SCH (10:20)
[2016-02-20] MEDS: THERAGRAN Tab PO SCH (10:21)
[2016-02-20] MEDS: PERCOCET 5/325 PO PRN ×2 (10:21→17:45)
[2016-02-20] MEDS: NORVASC PO SCH (10:22)
--- NOTE | 2016-02-20 13:08 | Progress Note ---
Assessment and Plan Alert orientated in NAD, S/P IO D of foot abcess. Wound ok, Doing well. Subjective Date of service: 02/20/16 Objective Vital signs: Vital Signs - 12hr 02/20/16 02/20/16 05:06 08:00 Temperature 98.4 F Pulse Rate [ 90 68 Right Radial] Respiratory 20 18 Rate Blood Pressure 127/79 [Right Arm] O2 Sat by Pulse 95 Oximetry - Labs CBC & BMP: 02/20/16 06:04 02/20/16 06:04 Labs: Abnormal lab results 02/19/16 02/20/16 02/20/16 Range/Units 16:44 06:04 06:04 [place] % (Auto) 8.9 H (0.0-7.3) % [place] # 0.9 H (0.0-0.8) K/mm3 Seg Neutrophils % 72.7 H (40.0-70.0) % BUN 22 H (9-20) mg/dL Vancomycin Trough 22.2 H (5.0-20.0) ug/mL
--- NOTE | 2016-02-20 13:26 | Consultation ---
History of Present Illness - Reason for Consult Consult date: 02/20/16 Left foot abscess Requesting physician: PHI LIN - History of Present Illness Ap Arrington is a 60-year-old male with no chronic medical problems who states that he stepped on a toothpick on 02/02/16 prior to admission and developed redness, swelling and pain and was admitted to [facility] on 02/16/16. He was seen in an urgent care center and given an oral antibiotic but had progressive swelling , pain and redness and was seen in the emergency department at [facility] and admitted. He underwent drainage of a left foot abscess on 02/19/16. Currently he is having some pain which is controlled by analgesics. He did have some fever and chills prior to admission but none recently. Otherwise he has no complaints at present. As mentioned above he has no chronic medical problems and has been on no chronic medications prior to admission. Review of systems General: See HPI HEENT: no odynophagia, no dysphagia, no oral lesions, no vision changes CV: no chest pain, no palpitations Chest: no dyspnea, no cough GI: no abdominal pain, no N/V, no diarrhea : no change in urinary frequency, no dysuria, no hematuria Skin: See HPI Ext: See HPI Neuro: no headaches, no numbness/tingling, no tremors Endocrine: No history of diabetes. Psych: no anxiety, no depression Infectious diseases: No HIV risk factors, No history of STDs, No significant travel or animal contact history. Past History Past Medical History: No medical history Medications and Allergies Allergies Allergy/AdvReac Type Severity Reaction Status Date / Time bee venom (honey bee) Allergy Anaphylaxis Verified 02/16/16 00:45 Home Medications Medication Instructions Recorded Confirmed Last Taken Type Naproxen [Naproxen TAB] 250 mg PO Q8H 02/16/16 02/16/16 Unknown History Active Meds: Active Medications Acetaminophen (Tylenol) 650 mg PO Q4H PRN PRN Reason: Pain MILD(1-3)/Fever >100.5/DHILLON Last Admin: 02/19/16 18:54 Dose: 650 mg Amlodipine Besylate (Norvasc) 10 mg PO QDAY RAO Last Admin: 02/20/16 10:22 Dose: 10 mg Bisacodyl (Dulcolax) 10 mg CO QDAY PRN PRN Reason: Constipation unrelieved by MOM Enoxaparin Sodium (Lovenox) 40 mg SUB-Q QDAY@1000 RAO Last Admin: 02/20/16 10:20 Dose: 40 mg Lactated Ringer's (Lactated Ringers) 1,000 mls @ 75 mls/hr IV DIRECT RAO Last Admin: 02/20/16 08:47 Dose: 75 mls/hr Vancomycin HCl (Vancomycin/Ns 1 Gm/250 Ml) 250 mls @ 167 mls/hr IV Q24HR RAO PRN Reason: Protocol Magnesium Hydroxide (Milk Of Magnesia) 30 ml PO Q4H PRN PRN Reason: Constipation Morphine Sulfate (Morphine) 2 mg IV Q4H PRN PRN Reason: Pain, Moderate (4-6) Last Admin: 02/20/16 13:19 Dose: 2 mg Multivitamins (Theragran Tab) 1 each PO QDAY RAO Last Admin: 02/20/16 10:21 Dose: 1 each Ondansetron HCl (Zofran) 4 mg IV Q8H PRN PRN Reason: N/V unrelieved by Reglan Oxycodone/Acetaminophen (Percocet 5/325) 1 tab PO Q6H PRN PRN Reason: Pain, Moderate (4-6) Last Admin: 02/20/16 10:21 Dose: 1 tab Sodium Chloride (Sodium Chloride Flush Syringe 10 Ml) 10 ml IV PRN NR Stop: 02/21/16 03:48 Zolpidem Tartrate (Ambien) 5 mg PO QHS PRN PRN Reason: Sleep Physical Examination - Physical Exam Narrative exam: GENERAL: Well-developed, thin appearing male who is alert and in no acute distress. HEAD: Normocephalic. No lesions seen. EYES: Pupils are equal reactive to light and accommodation. There is no scleral icterus. Optic fundi are not examined. EARS: Tympanic membranes are normal. THROAT: Oropharynx is normal with no evidence of oral candidiasis or pharyngitis. Poor dentition. NECK: Supple. No enlargement of the thyroid gland. No significant cervical lymphadenopathy. No jugular venous distention at 30. LUNGS: Clear with no adventitious sounds. HEART: Regular rate. S1 and S2 are normal. There are no murmurs, gallops, clicks or rubs heard. ABDOMEN: Soft and nontender. Liver and spleen are not palpably enlarged or tender. No palpable masses. Bowel sounds are normoactive. EXTREMITIES: No peripheral lymphadenopathy, clubbing or edema. Left foot dressing is in place and not removed since he is immediately postop. No signs of ascending infection. SKIN: No rash : Not examined NEUROLOGIC: No focal findings. - Constitutional Vitals: Vital Signs Temp Pulse Resp BP Pulse Ox 98.4 F 68 18 127/79 95 02/20/16 08:00 02/20/16 08:00 02/20/16 08:00 02/20/16 08:00 02/20/16 08:00 Temperature -Last 24 Hours Temperature 98.4 F Temperature 98.1 F Temperature 97.3 F Temperature 98.1 F Temperature 97.3 F Temperature 98.6 F Results - Labs CBC & Chem 7: 02/20/16 06:04 02/20/16 06:04 Labs: Abnormal lab results Microbiology 02/19/16 15:20 Foot - Left Surgical Culture -pending. Gram stain: Few PMNs and no organisms seen 02/16/16 03:13 Peripheral/Venous Blood Culture - Preliminary NO GROWTH AFTER 4 DAYS 02/16/16 03:13 Peripheral/Venous Blood Culture - Preliminary NO GROWTH AFTER 4 DAYS 02/16/16 04:49 Foot - Left Wound Culture - usual given guerita. Gram stain: Moderate PMNs and no organisms seen. Imagin/4: CT left foot: Destructive changes of the tibial sesamoid bone of the first digit suggesting osteomyelitis. Subcutaneous emphysema surrounding the first metatarsal. Assessment and Plan Current antibiotics: Vancomycin 1 g IV q24h 02/15 --> Previous antibiotics: Zosyn 4.5 g IV q8h 02/15 ASSESSMENT: Ap Arrington is a 60-year-old male with no chronic medical problems who states that he stepped on a toothpick on 02/02/16 prior to admission and developed redness, swelling and pain and was admitted to [facility] on 02/16/16. He underwent drainage of a left foot abscess on 02/19/16. Problem list: 1. Left foot infection -After a puncture wound (stepping on a toothpick) -Rule out sesamoid osteomyelitis -Surgical cultures pending 2. Mild leukocytosis -Secondary to #1 -Resolved PLAN: 1. Will continue vancomycin pending surgical culture data 2. Will decide on long-term antibiotics based on cultures. Hopefully an oral regimen can be prescribed but if not will need IV antibiotics to treat osteomyelitis Thank you for this consultation. We will follow with you. Matthew Steve MD [facility] Office: [phone]
--- NOTE | 2016-02-20 15:23 | Progress Note ---
Assessment and Plan Assessment and plan: 1. Left lower extremity cellulitis and abscess of the left foot with osteomyelitis-post I&D today; continue IV vancomycin for now and monitor vancomycin levels. White count is now normal and IV morphine as needed for pain , monitor for respiratory depression while on IV morphine; ID consult appreciated; wound care 2. Hypertension. Continue antihypertensives medications. 3. DVT prophylaxis-lovenox History Interval history: Follow-up for left foot cellulitis/abscess Patient seen at the bedside, had I&D yesterday, no complaints today Hospitalist Physical - Constitutional Vitals: Temp Pulse Resp BP Pulse Ox 98.4 F 68 18 127/79 95 02/20/16 08:00 02/20/16 08:00 02/20/16 08:00 02/20/16 08:00 02/20/16 08:00 General appearance: Present: no acute distress, well-nourished - EENT Eyes: Present: PERRL, EOM intact. Absent: scleral icterus, conjunctival injection ENT: hearing intact, clear oral mucosa, no oropharyngeal erythema, no poor dentition - Neck Neck: Present: supple, normal ROM. Absent: enlarged thyroid, masses or JVD - Respiratory Respiratory effort: normal Respiratory: negative: diminished, rales, rhonchi, wheezing - Cardiovascular Rhythm: regular Heart Sounds: Present: S1 & S2. Absent: gallop - Extremities Extremities: no ischemia, pulses intact, pulses symmetrical, No edema Extremity abnormal: other (dressing to the left foot) Peripheral Pulses: within normal limits - Abdominal General gastrointestinal: soft, non-tender, non-distended, normal bowel sounds - Integumentary Integumentary: Present: clear - Psychiatric Psychiatric: appropriate mood/affect, intact judgment & insight, cooperative - Neurologic Neurologic: CNII-XII intact, moves all extremities Results - Labs CBC & Chem 7: 02/20/16 06:04 02/20/16 06:04 Labs: Laboratory Last Values WBC 10.1 K/mm3 (4.5-11.0) 02/20/16 06:04 RBC 4.62 M/mm3 (3.65-5.03) 02/20/16 06:04 Hgb 14.3 gm/dl (11.8-15.2) 02/20/16 06:04 Hct 43.5 % (35.5-45.6) 02/20/16 06:04 MCV 94 fl (84-94) 02/20/16 06:04 MCH 31 pg (28-32) 02/20/16 06:04 MCHC 33 % (32-34) 02/20/16 06:04 RDW 14.6 % (13.2-15.2) 02/20/16 06:04 Plt Count 362 K/mm3 (140-440) 02/20/16 06:04 Lymph % (Auto) 14.9 % (13.4-35.0) 02/20/16 06:04 [place] % (Auto) 8.9 % (0.0-7.3) H 02/20/16 06:04 Eos % (Auto) 2.7 % (0.0-4.3) 02/20/16 06:04 Baso % (Auto) 0.8 % (0.0-1.8) 02/20/16 06:04 Lymph # 1.5 K/mm3 (1.2-5.4) 02/20/16 06:04 [place] # 0.9 K/mm3 (0.0-0.8) H 02/20/16 06:04 Eos # 0.3 K/mm3 (0.0-0.4) 02/20/16 06:04 Baso # 0.1 K/mm3 (0.0-0.1) 02/20/16 06:04 Seg Neutrophils % 72.7 % (40.0-70.0) H 02/20/16 06:04 Seg Neutrophils # 7.3 K/mm3 (1.8-7.7) 02/20/16 06:04 ESR 28 mm/Hr (0-20) 02/16/16 03:13 Sodium 141 mmol/L (137-145) 02/20/16 06:04 Potassium 4.3 mmol/L (3.6-5.0) 02/20/16 06:04 Chloride 102.0 mmol/L (98-107) 02/20/16 06:04 Carbon Dioxide 28 mmol/L (22-30) 02/20/16 06:04 Anion Gap 15 mmol/L 02/20/16 06:04 BUN 22 mg/dL (9-20) H 02/20/16 06:04 Creatinine 1.2 mg/dL (0.8-1.5) 02/20/16 06:04 Estimated GFR > 60 ml/min 02/20/16 06:04 BUN/Creatinine Ratio 18.33 % 02/20/16 06:04 Glucose 99 mg/dL (75-100) 02/20/16 06:04 Calcium 8.7 mg/dL (8.4-10.2) 02/20/16 06:04 C-Reactive Protein 5.90 mg/dL (0.00-1.30) H 02/16/16 03:13 Vancomycin Trough 22.2 ug/mL (5.0-20.0) H 02/19/16 16:44 Microbiology 02/19/16 15:20 Foot - Left Surgical Culture - Preliminary 02/16/16 03:13 Peripheral/Venous Blood Culture - Preliminary NO GROWTH AFTER 4 DAYS 02/16/16 03:13 Peripheral/Venous Blood Culture - Preliminary NO GROWTH AFTER 4 DAYS 02/16/16 04:49 Foot - Left Wound Culture - Final CT scan of the left foot-soft tissue infection of the forefoot with subcutaneous defect suggesting recently drained abscess adjacent to the first metatarsal bone. No residual abscess is seen. Destructive changes of the tibial sesamoid which could be due to trauma or possible osteomyelitis
[2016-02-21] MEDS: MORPHINE IV PRN ×3 (01:03→12:17)
[2016-02-21] MEDS: NORVASC PO SCH (09:48)
[2016-02-21] MEDS: LOVENOX SUB-Q SCH (09:49)
[2016-02-21] MEDS: THERAGRAN Tab PO SCH (09:49)
[2016-02-21] MEDS ORDERED: VANCOMYCIN/NS 1 GM/250 ML 250 ML IV SCH (10:00)
--- NOTE | 2016-02-21 10:43 | Progress Note ---
Assessment and Plan ASSESSMENT: Ap Arrington is a 60-year-old male with no chronic medical problems who states that he stepped on a toothpick on 02/02/16 prior to admission and developed redness, swelling and pain and was admitted to [facility] on 02/16/16. He underwent drainage of a left foot abscess on 02/19/16. Problem list: 1. Left foot infection -After a puncture wound (stepping on a toothpick) -Rule out sesamoid osteomyelitis -Surgical cultures 02/18 negative with rare polys and no organisms on stain. - Previous wound site culture with light growth of normal skin guerita and moderate polys on stain. 2. Mild leukocytosis -Secondary to #1 -Resolved PLAN: 1. In the absence of isolation of resistant foot guerita, suggest change to oral Levaquin or ciprofloxacin plus metronidazole. ( Vancomycin stopped) 2. With CT scan findings of sesamoid bone osteomyelitis would suggest antibiotics for 6 weeks. 3. Suggest follow CBC and C-reactive protein. 4. Continue local wound therapy otherwise. 5. Okay ID correa for discharge. Subjective Date of service: 02/21/16 Interval history: No specific complaints. He notes marked improvement of left foot swelling. Objective - Exam Narrative Exam: Thin male in no distress. HEENT: Pupils are equal reactive to light and accommodation. Conjunctiva clear. Oropharynx is normal with no evidence of oral candidiasis or pharyngitis. NECK: Supple. No enlargement of the thyroid gland. No significant cervical lymphadenopathy. No jugular venous distention at 30. LUNGS: Clear with no adventitious sounds. HEART: Regular rate. S1 and S2 are normal. There are no murmurs, gallops, clicks or rubs heard. ABDOMEN: Soft and nontender. Liver and spleen are not palpably enlarged or tender. No palpable masses. Bowel sounds are normoactive. EXTREMITIES: Minimal left foot edema and redness. No tenderness or warmth. I& D wound site clean. SKIN: No other rash, ulcers or wounds. NEUROLOGIC: No focal findings. - Constitutional Vitals: Vital Signs Temp Pulse Resp BP Pulse Ox 97.8 F 71 16 143/96 98 02/21/16 08:00 02/21/16 08:00 02/21/16 08:00 02/21/16 08:00 02/21/16 08:00 Temperature -Last 24 Hours Temperature 97.8 F Temperature 98.0 F Temperature 98.4 F - Labs CBC & Chem 7: 02/20/16 06:04 02/20/16 06:04
[2016-02-21] MEDS ORDERED: LEVAQUIN PO SCH (11:00)
--- NOTE | 2016-02-21 11:24 | Discharge Summary ---
Providers - Providers Date of Admission: 02/16/16 04:38 Date of discharge: 02/21/16 Attending physician: PHI LIN 02/18/16 10:15 Consult to Physician [CONS] Routine Consulting Provider: CRAIG VOGEL V Reason For Exam: LT foot cellulitis; r/o abscess Place consult to:: DR. VOGEL Notified:: OFFICE Phone number called:: [phone] Was contact made?: Yes If yes, spoke with:: ALEISHA Time called:: 11:45 Comment:: RANGEL NOTIFIED 02/20/16 03:47 Consult to Wound/ET Nurse [CONS] Routine Reason For Exam: wound eval 02/20/16 10:04 Consult to Physician [CONS] Routine Consulting Provider: RAFAL ORTIZ Reason For Exam: LT foot infection; ? osteo Place consult to:: DR. CHAN Notified:: DR. CHAN Phone number called:: IN HOUSE Was contact made?: Yes If yes, spoke with:: DR. CHAN Time called:: 10:15 Primary care physician: [employer] Hospitalization Reason for admission: cellulitis LT foot Condition: Fair Pertinent studies: CT scan of the left foot-soft tissue infection of the forefoot with subcutaneous defect suggesting recently drained abscess adjacent to the first metatarsal bone. No residual abscess is seen. Destructive changes of the tibial sesamoid which could be due to trauma or possible osteomyelitis Microbiology 02/19/16 15:20 Foot - Left Surgical Culture - Preliminary 02/19/16 15:20 Foot - Left Anaerobic Culture - Preliminary 02/16/16 03:13 Peripheral/Venous Blood Culture - Final NO GROWTH AFTER 5 DAYS 02/16/16 03:13 Peripheral/Venous Blood Culture - Final NO GROWTH AFTER 5 DAYS 02/16/16 04:49 Foot - Left Wound Culture - Final Hospital course: Mr. Arrington presented to the ER with pain and swelling to the Lt foot after stepping on a tooth pick 2 weeks prior to presentation; he was on started on po antibiotics but his foot worsened; he was admitted and started on IV antibiotics ; CT scan was done which confirmed osteomyelitis. He also was seen by the orthopedic surgeon and had incision and drainage done. He was seen by infectious disease and 6 weeks of oral antibiotics were recommended. He was also set up for wound care prior to discharge. condition at discharge-stable\ 31 minutes spent on discharge Disposition: DISCHARGED TO HOME OR SELFCARE - Discharge Diagnoses (1) Cellulitis of left foot Status: Acute (2) Osteomyelitis Status: Acute Core Measure Documentation - Palliative Care Palliative Care/ Comfort Measures: Not Applicable - Core Measures Any of the following diagnoses?: none Exam - Constitutional Vitals: Temp Pulse Resp BP Pulse Ox 97.8 F 71 16 143/96 98 02/21/16 08:00 02/21/16 08:00 02/21/16 08:00 02/21/16 08:00 02/21/16 08:00 General appearance: Present: no acute distress, well-nourished - EENT Eyes: Present: PERRL, EOM intact. Absent: scleral icterus, conjunctival injection ENT: hearing intact, clear oral mucosa, no oropharyngeal erythema, no poor dentition - Neck Neck: Present: supple, normal ROM. Absent: enlarged thyroid, masses or JVD - Respiratory Respiratory effort: normal Respiratory: negative: diminished, rales, rhonchi, wheezing - Cardiovascular Rhythm: regular Heart Sounds: Present: S1 & S2. Absent: gallop - Extremities Extremities: abnormal (dressing to LT foot) - Abdominal General gastrointestinal: Present: soft, non-tender, non-distended Male genitourinary: Present: deferred - Rectal Rectal Exam: deferred - Integumentary Integumentary: Present: clear - Musculoskeletal Musculoskeletal: strength equal bilaterally - Psychiatric Psychiatric: appropriate mood/affect, intact judgment & insight - Neurologic Neurologic: CNII-XII intact, moves all extremities Plan Activity: advance as tolerated Diet: low salt Additional Instructions: f/u wound care Follow up with: IRENE BETTENCOURT MD [Primary Care Provider] - 3-5 Days CRAIG VOGEL MD [Staff Physician] - 7 Days Prescriptions: Levofloxacin [Levaquin TAB] 750 mg PO Q24HR 44 Days amLODIPine [Norvasc] 10 mg PO DAILY #30 tab metroNIDAZOLE [Flagyl TAB] 500 mg PO Q8HR 44 Days oxyCODONE /ACETAMINOPHEN [Percocet 5/325 mg] 1 tab PO Q6H PRN #20 tablet PRN Reason: Pain, Moderate (4-6)
[2016-02-21 12:46] VITALS: BP 121/74
[2016-02-21] MEDS: PERCOCET 5/325 PO PRN (13:05)
[2016-02-21] MEDS ORDERED: FLAGYL PO SCH (14:00)
== END 2016-02-21 13:21 | disposition home health service (06) | DRG 501 ==
LOC: ED 16:30 → 3A 02-16 04:38
PROVIDERS: ADMIT Internal Medicine; ATTEND Hospitalist
PROC: 0KBW0ZZ Excision of Left Foot Muscle, Open Approach (ICD-10-PCS; principal; 2016-02-19)
DX: M86.8X7 Other osteomyelitis, ankle and foot (principal); L03.116 Cellulitis of left lower limb; L02.612 Cutaneous abscess of left foot; I10 Essential (primary) hypertension; F17.210 Nicotine dependence, cigarettes, uncomplicated; D72.829 Elevated white blood cell count, unspecified; Z82.49 Family history of ischemic heart disease and other diseases of the circulatory system; Z91.030 Bee allergy status; Z79.899 Other long term (current) drug therapy
CPT/HCPCS: 36415; 80048; 80202; 85025; 85652; 86140; 87040; 87075; 87116; 96365; 96366; 96368; 96372; 96375; A4217; J0131; J1170; J1650; J1885; J2250; J2270; J2405; J2543; J2704; J3010; J3370; J7030; J7120

== ENCOUNTER 2016-03-02 08:47 | Outpatient (CLI) | payer MEDICAID ==
[2016-03-02] MEDS ORDERED: XYLOCAINE TOPICAL 2% ONE (09:31)
[2016-03-02] MEDS ORDERED: XYLOCAINE TOPICAL 2% TP ONE (09:42)
== END 2016-03-02 08:48 | disposition home or self-care (01) ==
LOC: WOUND 08:47
PROVIDERS: ATTEND Orthopaedic Surgery
DX: L02.612 Cutaneous abscess of left foot (principal); F17.210 Nicotine dependence, cigarettes, uncomplicated; Z72.89 Other problems related to lifestyle; I10 Essential (primary) hypertension
CPT/HCPCS: 11042; G0463

== ENCOUNTER 2016-03-10 08:46 | Outpatient (CLI) | payer MEDICAID ==
[2016-03-10] MEDS ORDERED: XYLOCAINE TOPICAL 2% TP ONE ×2 (09:00→09:03)
== END 2016-03-10 08:47 | disposition home or self-care (01) ==
LOC: WOUND 08:46
PROVIDERS: ATTEND Podiatrist
DX: L97.422 Non-pressure chronic ulcer of left heel and midfoot with fat layer exposed (principal); I10 Essential (primary) hypertension; F17.210 Nicotine dependence, cigarettes, uncomplicated

== ENCOUNTER 2016-03-16 08:26 | Outpatient (CLI) | payer MEDICAID ==
[2016-03-16] MEDS ORDERED: XYLOCAINE TOPICAL 2% ONE (09:36)
== END 2016-03-16 08:27 | disposition home or self-care (01) ==
LOC: WOUND 08:26
PROVIDERS: ATTEND Internal Medicine
DX: L97.422 Non-pressure chronic ulcer of left heel and midfoot with fat layer exposed (principal); I10 Essential (primary) hypertension; F17.210 Nicotine dependence, cigarettes, uncomplicated

== ENCOUNTER 2016-03-23 09:54 | Outpatient (CLI) | payer MEDICAID ==
[2016-03-23] MEDS ORDERED: XYLOCAINE TOPICAL 2% ONE (10:18)
[2016-03-23] MEDS ORDERED: XYLOCAINE TOPICAL 2% TP ONE (10:43)
== END 2016-03-23 09:55 | disposition home or self-care (01) ==
LOC: WOUND 09:54
PROVIDERS: ATTEND Internal Medicine
DX: L97.422 Non-pressure chronic ulcer of left heel and midfoot with fat layer exposed (principal); I10 Essential (primary) hypertension; F17.210 Nicotine dependence, cigarettes, uncomplicated; Z72.89 Other problems related to lifestyle

== ENCOUNTER 2016-03-30 10:51 | Outpatient (CLI) | payer MEDICAID ==
[2016-03-30] MEDS ORDERED: XYLOCAINE TOPICAL 2% ONE (11:46)
[2016-03-30] MEDS ORDERED: XYLOCAINE TOPICAL 2% TP ONE (12:02)
== END 2016-03-30 10:52 | disposition home or self-care (01) ==
LOC: WOUND 10:51
PROVIDERS: ATTEND Internal Medicine
DX: L97.422 Non-pressure chronic ulcer of left heel and midfoot with fat layer exposed (principal); I10 Essential (primary) hypertension; F17.210 Nicotine dependence, cigarettes, uncomplicated

== ENCOUNTER 2016-04-06 10:36 | Outpatient (CLI) | payer MEDICAID ==
[2016-04-06] MEDS ORDERED: XYLOCAINE TOPICAL 4% TP ONE (11:16)
== END 2016-04-06 10:37 | disposition home or self-care (01) ==
LOC: WOUND 10:36
PROVIDERS: ATTEND Internal Medicine
DX: L97.422 Non-pressure chronic ulcer of left heel and midfoot with fat layer exposed (principal); I10 Essential (primary) hypertension; B35.1 Tinea unguium; F17.210 Nicotine dependence, cigarettes, uncomplicated; Z72.89 Other problems related to lifestyle; M79.672 Pain in left foot; L84 Corns and callosities
CPT/HCPCS: 11719

== ENCOUNTER 2016-04-13 11:36 | Outpatient (CLI) | payer MEDICAID ==
[~2016-04-13 11:36] MED LIST: XYLOCAINE TOPICAL 4% TP ONE
== END 2016-04-13 11:37 | disposition home or self-care (01) ==
LOC: WOUND 11:36
PROVIDERS: ATTEND Internal Medicine
DX: L97.421 Non-pressure chronic ulcer of left heel and midfoot limited to breakdown of skin (principal); I10 Essential (primary) hypertension; B35.1 Tinea unguium; F17.210 Nicotine dependence, cigarettes, uncomplicated; L84 Corns and callosities; M79.672 Pain in left foot
CPT/HCPCS: 11055; G0463; 99213